=== PATIENT | male | born 1950 | race Caucasian/White ===

== ENCOUNTER 2020-04-19 13:53 | Emergency (ER) | payer OTHER ==
[~2020-04-19] VITALS: Ht 172.7 cm; Wt 64.9 kg
[~2020-04-19 13:53] MED LIST: PRED20 PO; [UNRECOGNIZED DRUG - REMARK]
[2020-04-19] MEDS ORDERED: TAMS.4ER PO (14:09)
[2020-04-19] MEDS ORDERED: FINA5 PO (14:09)
[2020-04-19] MEDS ORDERED: LISI5 PO (14:10)
[2020-04-19] MEDS ORDERED: SUCR1 PO (14:10)
[2020-04-19] MEDS ORDERED: DILT180 PO (14:11)
[2020-04-19] MEDS ORDERED: Prozac20 MG PO (14:11)
[2020-04-19] MEDS ORDERED: OMEP20ER PO (14:12)
[2020-04-19 14:35] LABS: BASOPHILS ABSOLUTE AUTO 0.05 K/mm3 (0.00-0.23); BASOPHILS PERCENT AUTO 0 % (0-2); EOSINOPHILS ABSOLUTE AUTO 0.02 K/mm3 (0.00-0.68); EOSINOPHILS PERCENT AUTO 0 % (0-6); Hematocrit 45.2 % (37.0-53.0); IMMATURE GRAN ABSOLUTE AUTO 0.11 K/mm3 (0.00-0.10); IMMATURE GRAN PERCENT AUTO 1 % (0-1); LYMPHOCYTES PERCENT AUTO 5 % (21-46); MONOCYTES ABSOLUTE AUTO 1.51 K/mm3 (0.16-1.47); MONOCYTES PERCENT AUTO 7 % (4-13); Mean Corpuscular HGB 29.3 pg (26.0-34.0); Mean Corpuscular HGB Conc 33.2 g/dL (31.5-36.5); Mean Corpuscular Volume 88 fL (80-100); Mean Platelet Volume 10.7 fL (9.1-12.4); NEUTROPHILS ABSOLUTE AUTO 18.18 K/mm3 (1.96-9.15); NEUTROPHILS PERCENT AUTO 87 % (41-73); Platelet Count 282 K/mm3 (150-400); RDW Standard Deviation 38.9 fL (35.1-46.3); Red Blood Cell Count 5.12 M/mm3 (4.30-5.90); White Blood Cell Count 20.97 K/mm3 (4.00-11.30)
[2020-04-19 14:50] LABS: International Normalized Ratio 0.99; Prothrombin Time Results 10.6 Sec (9.7-11.5)
[2020-04-19 14:54] LABS: Alanine Aminotransfer (ALT/SGP 20 U/L (12-78); Albumin, Blood 3.7 g/dL (3.4-5.0); Alk Phos 111 U/L (50-136); Anion Gap 5 mmol/L (6-16); Aspartate Aminotrans (AST/SGOT 23 U/L (12-37); Bilirubin, Total 0.8 mg/dL (0.1-1.0); Blood Urea Nitrogen 12 mg/dL (8-24); Bun/Creatinine Ratio 18.5 (12.0-20.0); CO2, Blood 26 mmol/L (21-32); Calcium, Blood 9.1 mg/dL (8.5-10.1); Chloride, Blood 109 mmol/L (98-108); Creatinine, Blood 0.65 mg/dL (0.60-1.20); Globulin, Blood 3.7 g/dL (2.2-4.0); Glomerular Filtration Rate >60 (60-); Glucose, Blood 115 mg/dL (70-99); Potassium, Blood 3.8 mmol/L (3.5-5.5); Sodium, Blood 140 mmol/L (136-145); Total Protein, Blood 7.4 g/dL (6.4-8.2)
[2020-04-19 20:29] LABS: Adenovirus Not Detected (NOT DETECT); Bordetella pertussis Not Detected (NOT DETECT); Chlamydophila pneumoniae Not Detected (NOT DETECT); Coronavirus 229E Not Detected (NOT DETECT); Coronavirus HKU1 Not Detected (NOT DETECT); Coronavirus NL63 Not Detected (NOT DETECT); Coronavirus OC43 Not Detected (NOT DETECT); Human Metapneumovirus Not Detected (NOT DETECT); Human Rhinovirus/Enterovirus Not Detected (NOT DETECT); Influenza A/2009-H1 Not Detected (NOT DETECT); Influenza A/H1 Not Detected (NOT DETECT); Influenza A/H3 Not Detected (NOT DETECT); Influenza B Not Detected (NOT DETECT); Mycoplasma pneumoniae Not Detected (NOT DETECT); Parainfluenza Virus 1 Not Detected (NOT DETECT); Parainfluenza Virus 2 Not Detected (NOT DETECT); Parainfluenza Virus 3 Not Detected (NOT DETECT); Parainfluenza Virus 4 Not Detected (NOT DETECT); Respiratory Syncytial Virus Not Detected (NOT DETECT); SARS-Cov-2 (COVID-19), BioFire Not Detected (NOT DETECT)
[2020-04-19 20:52] LABS: Source, Urine Catheter
[2020-04-19 20:55] LABS: Bilirubin, Urine Neg (Neg); Blood, Urine 1+ (Neg); Glucose Qualitative, Urine Neg (Neg); Ketones, Urine 3+ (Neg); Leukocyte Esterase, Urine 1+ (Neg); Nitrite, Urine Neg (Neg); Protein, Urine 1+ (Neg); Urobilinogen, Urine NORM (Normal)
[2020-04-19 21:06] LABS: Color, Urine Yellow (P-Yellow)
[2020-04-19 21:07] LABS: Amorphous Light (0-Heavy); Appearance, Urine Hazy (Clear); Bacteria Few /hpf; Mucus Mod (0-Heavy); Red Blood Cells, Urine 0-2 /hpf (0-2); Squamous Epithelial Cells Few /hpf (Few)
[2020-04-19] MEDS ORDERED: SYMBICORT 80-10.2 GM INH (22:18)
[2020-04-19] MEDS ORDERED: IPRAT-ALBUT 0.5-3 ML NEB (22:18)
[2020-04-19] MEDS ORDERED: SPIRIVA RESPIMAT4 G2 INH (22:19)
[2020-04-19] MEDS ORDERED: Zithromax250 MG PO (22:28)
[2020-04-19] MEDS ORDERED: CEFP200 PO (22:28)
== END 2020-04-19 22:41 | disposition home or self-care (01) ==
LOC: ER 13:53
PROVIDERS: Physician Assistant
DX: J44.1 Chronic obstructive pulmonary disease with (acute) exacerbation (principal); N39.0 Urinary tract infection, site not specified; I10 Essential (primary) hypertension; N40.0 Benign prostatic hyperplasia without lower urinary tract symptoms; Z20.828 Contact with and (suspected) exposure to other viral communicable diseases; Z88.5 Allergy status to narcotic agent; Z86.73 Personal history of transient ischemic attack (TIA), and cerebral infarction without residual deficits; Z99.81 Dependence on supplemental oxygen; Z79.899 Other long term (current) drug therapy; Z79.51 Long term (current) use of inhaled steroids
CPT/HCPCS: 0202U; 36415; 71045; 80053; 81001; 83605; 85025; 85610; 85730; 87040; 87086; 93005; 93010; 94644; 96365; 96367; 99284-25; J0456; J0696; J7050

== ENCOUNTER 2020-04-26 13:54 | Emergency (ER) | payer OTHER ==
[~2020-04-26] VITALS: Ht 172.7 cm; Wt 64.9 kg
[~2020-04-26 13:54] MED LIST changes: +CEFP200 PO; +DILT180 PO; +FINA5 PO; +IPRAT-ALBUT 0.5-3 ML NEB; +LISI5 PO; +OMEP20ER PO; +Prozac20 MG PO; +SPIRIVA RESPIMAT4 G2 INH; +SUCR1 PO; +SYMBICORT 80-10.2 GM INH; +TAMS.4ER PO; +Zithromax250 MG PO
[2020-04-26] MEDS ORDERED: TAMS.4ER PO (14:30)
[2020-04-26] MEDS ORDERED: OXYB5 PO (14:32)
[2020-04-26] MEDS ORDERED: FINA5 PO (14:32)
== END 2020-04-26 15:28 | disposition home or self-care (01) ==
LOC: ER 13:54
DX: R06.02 Shortness of breath (principal); J44.9 Chronic obstructive pulmonary disease, unspecified; I10 Essential (primary) hypertension; K21.9 Gastro-esophageal reflux disease without esophagitis; Z88.8 Allergy status to other drugs, medicaments and biological substances; Z88.5 Allergy status to narcotic agent; Z86.73 Personal history of transient ischemic attack (TIA), and cerebral infarction without residual deficits; Z79.51 Long term (current) use of inhaled steroids; Z79.899 Other long term (current) drug therapy
CPT/HCPCS: 93005; 93010; 99285-25